=== PATIENT | male | born 1995 | race Caucasian/White ===

== ENCOUNTER 2019-01-02 22:29 | Emergency (ER) | payer SELFPAY ==
[2019-01-02 23:30] LABS: Absolute Lymphocytes (CBC) 2.4 K/uL (0.7-4.9); Basophils % 0.7 % (0-1.3); Hematocrit 44.5 % (39.6-49.0); Lymphocytes % 22.1 % (15.3-44.8); MPV 8.9 fL (7.6-11.3); RBC Red Blood Cell Count 5.47 M/uL (4.33-5.43)
[2019-01-02] MEDS ORDERED: NA CHLORIDE 0.9% 1,000 ML ONE (23:38)
[2019-01-02 23:44] LABS: CKMB Creatine Kinase MB 5.1 ng/mL (0.3-3.6); Potassium 3.9 mmol/L (3.5-5.1)
[2019-01-03 00:13] LABS: Urine Blood NEGATIVE (NEG); Urine Glucose NEGATIVE (NEG); Urine Protein NEGATIVE (NEG); Urine Specific Gravity 1.025 (1.005-1.030); Urine pH 6.5 (5.0-7.0)
[2019-01-03] MEDS ORDERED: NA CHLORIDE 0.9% 1,000 ML ONE (00:39)
--- NOTE | 2019-01-03 01:04 | ER ---
Nurse's Notes [facility] Name: Ty Govea Age: 23 yrs Sex: Male : 1995 Arrival Date: 01/02/2019 Time: 22:35 Bed 19 Private MD: Diagnosis: Muscle spasm-cramps Presentation: 01/02 23:00 Presenting complaint: Patient states: "body cramping and noticed dark urine since cc3 yesterday. No abdominal pain". Transition of care: patient was not received from another setting of care. Onset of symptoms was January 01, 2019. Risk Assessment: Do you want to hurt yourself or someone else? Patient reports no desire to harm self or others. Initial Sepsis Screen: Does the patient meet any 2 criteria? No. Patient's initial sepsis screen is negative. Does the patient have a suspected source of infection? Yes: Dysuria/Frequency/Urgency/UTI. Care prior to arrival: None. 23:00 Method Of Arrival: Ambulatory cc3 23:00 Acuity: BHAVANA 3 cc3 Triage Assessment: 23:00 General: Appears in no apparent distress. comfortable, Behavior is calm, cooperative, cc3 appropriate for age. Pain: Denies pain. EENT: No signs and/or symptoms were reported regarding the EENT system. Neuro: Level of Consciousness is awake, alert, obeys commands, Oriented to person, place, time, situation, Appropriate for age. Cardiovascular: Denies chest pain, Capillary refill < 3 seconds Patient's skin is warm and dry. Respiratory: Airway is patent Respiratory effort is even, unlabored, Respiratory pattern is regular, symmetrical. GI: Abdomen is round obese. : Reports dark urine. Derm: Skin is intact, is healthy with good turgor, Skin is pink, warm \\T\\ dry. normal. Musculoskeletal: Circulation, motion, and sensation intact. Range of motion: intact in all extremities. Historical: - Allergies: 23:00 No Known Allergies; cc3 - PSHx: 23:00 Tonsillectomy; left ankle surgery; cc3 - Immunization history:: Adult Immunizations up to date. - Social history:: Smoking status: Patient uses tobacco products, smokeless tobacco. - Ebola Screening: : No symptoms or risks identified at this time. Screenin:00 Abuse screen: Denies threats or abuse. Denies injuries from another. Nutritional cc3 screening: No deficits noted. Tuberculosis screening: No symptoms or risk factors identified. Fall Risk Ambulatory Aid- None/Bed Rest/Nurse Assist (0 pts). Gait- Normal/Bed Rest/Wheelchair (0 pts) Mental Status- Oriented to own ability (0 pts). Assessment: 23:00 General: see triage assessment. cc3 01/03 00:18 Reassessment: Patient appears in no apparent distress at this time. Patient and/or cc3 family updated on plan of care and expected duration. Pain level reassessed. Patient is alert, oriented x 3, equal unlabored respirations, skin warm/dry/pink. 01:30 Reassessment: Patient appears in no apparent distress at this time. Patient and/or cc3 family updated on plan of care and expected duration. Pain level reassessed. Patient is alert, oriented x 3, equal unlabored respirations, skin warm/dry/pink. IV fluid boluses completed. DIRECTOR OF VIDEO ANALYTICS Bossman discharged the patient home, no prescriptions given. IV cannula removed and patient left ER vitally stable and ambulatory with his friend. No valuables left in the patient's room. Patient denies pain at this time. Patient states feeling better. Patient states symptoms have improved. Vital Signs: 01/02 23:00 BP 142 / 76; Pulse 87; Resp 20 S; Temp 98.4(O); Pulse Ox 99% on R/A; Weight 149.69 kg cc3 (R); Height 6 ft. 7 in. (200.66 cm) (R); Pain 0/10; 01/03 00:20 BP 131 / 77; Pulse 85; Resp 18 S; Pulse Ox 98% on R/A; cc3 01:12 BP 135 / 72; Pulse 83; Resp 18 S; Pulse Ox 99% on R/A; cc3 01/02 23:00 Body Mass Index 37.18 (149.69 kg, 200.66 cm) 3 ED Course: 01/02 22:35 Patient arrived in ED. ag3 22:40 [facility] kb 22:40 Messi Rodríguez MD is Attending Physician. kb 23:00 Patient has correct armband on for positive identification. Bed in low position. Call cc3 light in reach. Side rails up X 1. Pulse ox on. NIBP on. 23:00 Arm band placed on right wrist. Patient notified of wait time. cc3 23:16 Tika Ramesh is Primary Nurse. cc3 23:28 Triage completed. cc3 23:34 Inserted saline lock: 20 gauge in right antecubital area, using aseptic technique. cm6 01/03 01:30 No provider procedures requiring assistance completed. IV discontinued, intact, cc3 bleeding controlled, No redness/swelling at site. Pressure dressing applied. Administered Medications: 01/02 23:30 Drug: NS 0.9% 1000 ml Route: IV; Rate: 1000 ml; Site: right antecubital; cc3 01/03 00:20 Follow up: Response: No adverse reaction; IV Status: Completed infusion; IV Intake: cc3 1000ml 00:30 Drug: NS 0.9% 1000 ml Route: IV; Rate: 1000 ml; Site: right antecubital; cc3 01:30 Follow up: Response: No adverse reaction; IV Status: Completed infusion; IV Intake: cc3 1000ml Intake: 00:20 IV: 1000ml; Total: 1000ml. cc3 01:30 IV: 1000ml; Total: 2000ml. cc3 Outcome: 00:53 Discharge ordered by . kb 01:30 Discharged to home ambulatory, with friend. cc3 01:30 Condition: stable 01:30 Discharge instructions given to patient, Instructed on discharge instructions, follow up and referral plans. Demonstrated understanding of instructions, follow-up care. 01:45 Patient left the ED. cc3 Signatures: Sanjuana Keita, TERADATA ARCHITECT-C TERADATA ARCHITECT-Ckb Tika Ramesh cc3 Mary Sandra Ada Almonte cm6 Corrections: (The following items were deleted from the chart) 01/02 23:34 23:32 Inserted saline lock: 20 gauge in right antecubital area, using aseptic cm6 technique. cm6 01/03 05:15 01/02 23:15 Inserted saline lock: 20 gauge in right antecubital area, using aseptic cc3 technique. Blood collected. inserted by diploma pharmacy techniciannidhi Caballero cc3
--- NOTE | 2019-01-03 01:05 | EDPHYS ---
Physician Documentation [facility] Name: Ty Govea Age: 23 yrs Sex: Male : 1995 Arrival Date: 01/02/2019 Time: 22:35 Bed 19 Private MD: ED Physician Messi Rodríguez HPI: 01/02 23:31 This 23 yrs old Male presents to ER via Ambulatory with complaints of BODY CRAMPING, kb DARK URINE. 23:31 Pt reports muscle cramps to entire body and dark urine that started today. 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 Onset: The symptoms/episode began/occurred today. Severity of symptoms: At their worst the symptoms were moderate in the emergency department the symptoms are unchanged. The patient has not experienced similar symptoms in the past. The patient has not recently seen a physician. Historical: - Allergies: 23:00 No Known Allergies; cc3 - PSHx: 23:00 Tonsillectomy; left ankle surgery; cc3 - Immunization history:: Adult Immunizations up to date. - Social history:: Smoking status: Patient uses tobacco products, smokeless tobacco. - Ebola Screening: : No symptoms or risks identified at this time. ROS: 23:30 Constitutional: Negative for fever, chills, and weight loss, ENT: Negative for injury, kb pain, and discharge, Neck: Negative for injury, pain, and swelling, Cardiovascular: Negative for chest pain, palpitations, and edema, Respiratory: Negative for shortness of breath, cough, wheezing, and pleuritic chest pain, Abdomen/GI: Negative for abdominal pain, nausea, vomiting, diarrhea, and constipation, Back: Negative for injury and pain, MS/Extremity: Negative for injury and deformity, Skin: Negative for injury, rash, and discoloration, Neuro: Negative for headache, weakness, numbness, tingling, and seizure. 23:30 : Positive for dark urine. Exam: 23:30 Constitutional: This is a well developed, well nourished patient who is awake, alert, kb and in no acute distress. Head/Face: Normocephalic, atraumatic. ENT: Nares patent. No nasal discharge, no septal abnormalities noted. Tympanic membranes are normal and external auditory canals are clear. Oropharynx with no redness, swelling, or masses, exudates, or evidence of obstruction, uvula midline. Mucous membranes moist. Neck: Trachea midline, no thyromegaly or masses palpated, and no cervical lymphadenopathy. Supple, full range of motion without nuchal rigidity, or vertebral point tenderness. No Meningismus. Chest/axilla: Normal chest wall appearance and motion. Nontender with no deformity. No lesions are appreciated. Cardiovascular: Regular rate and rhythm with a normal S1 and S2. No gallops, murmurs, or rubs. Normal PMI, no JVD. No pulse deficits. Respiratory: Lungs have equal breath sounds bilaterally, clear to auscultation and percussion. No rales, rhonchi or wheezes noted. No increased work of breathing, no retractions or nasal flaring. Abdomen/GI: Soft, non-tender, with normal bowel sounds. No distension or tympany. No guarding or rebound. No evidence of tenderness throughout. Skin: Warm, dry with normal turgor. Normal color with no rashes, no lesions, and no evidence of cellulitis. MS/ Extremity: Pulses equal, no cyanosis. Neurovascular intact. Full, normal range of motion. Neuro: Awake and alert, GCS 15, oriented to person, place, time, and situation. Cranial nerves II-XII grossly intact. Motor strength 5/5 in all extremities. Sensory grossly intact. Cerebellar exam normal. Normal gait. Vital Signs: 23:00 BP 142 / 76; Pulse 87; Resp 20 S; Temp 98.4(O); Pulse Ox 99% on R/A; Weight 149.69 kg cc3 (R); Height 6 ft. 7 in. (200.66 cm) (R); Pain 0/10; 01/03 00:20 BP 131 / 77; Pulse 85; Resp 18 S; Pulse Ox 98% on R/A; cc3 01:12 BP 135 / 72; Pulse 83; Resp 18 S; Pulse Ox 99% on R/A; cc3 01/02 23:00 Body Mass Index 37.18 (149.69 kg, 200.66 cm) cc3 MDM: 01/02 22:55 Patient medically screened. kb 23:31 Data reviewed: vital signs, nurses notes. Data interpreted: Pulse oximetry: on room air kb is 99 %. Interpretation: normal. 01/03 00:52 Counseling: I had a detailed discussion with the patient and/or guardian regarding: the kb historical points, exam findings, and any diagnostic results supporting the discharge/admit diagnosis, lab results, the need for outpatient follow up, a family practitioner, to return to the emergency department if symptoms worsen or persist or if there are any questions or concerns that arise at home. 01/02 23:06 Order name: CBC with Diff kb 01/02 23:06 Order name: Basic Metabolic Panel kb 01/02 23:06 Order name: CPK kb 01/02 23:06 Order name: Ckmb; Complete Time: 23:49 kb 01/02 23:07 Order name: CBC with Automated Diff; Complete Time: 23:31 EDMS 01/02 23:07 Order name: Basic Metabolic Panel; Complete Time: 23:49 EDMS 01/02 23:06 Order name: Urine Dipstick-Ancillary (obtain specimen); Complete Time: 00:00 kb 01/02 23:06 Order name: IV Start; Complete Time: 00:00 kb 01/02 23:07 Order name: Creatine Phosphokinase; Complete Time: 23:49 EDMS 01/03 00:03 Order name: Urine Dipstick--Ancillary (enter results) ag4 01/03 00:14 Order name: Urine Dipstick-Ancillary EDMS Administered Medications: 01/02 23:30 Drug: NS 0.9% 1000 ml Route: IV; Rate: 1000 ml; Site: right antecubital; cc3 01/03 00:20 Follow up: Response: No adverse reaction; IV Status: Completed infusion; IV Intake: cc3 1000ml 00:30 Drug: NS 0.9% 1000 ml Route: IV; Rate: 1000 ml; Site: right antecubital; cc3 01:30 Follow up: Response: No adverse reaction; IV Status: Completed infusion; IV Intake: cc3 1000ml Disposition: 02:27 Co-signature as Attending Physician, Messi Rodríguez MD. rn Disposition: 01/03/19 00:53 Discharged to Home. Impression: Muscle spasm - cramps. - Condition is Stable. - Discharge Instructions: Muscle Cramps and Spasms, Rhabdomyolysis. - Medication Reconciliation Form, Thank You Letter, Antibiotic Education, Prescription Opioid Use, Work release form form. - Follow up: Private Physician; When: 2 - 3 days; Reason: Recheck today's complaints, Continuance of care, Re-evaluation by your physician. Follow up: Emergency Department; When: As needed; Reason: Worsening of condition. Signatures: Dispatcher [employer] Sanjuana Rueda, SONA ALEXP-Messi Frey MD MD rn Cordel, Charlene cc3 Corrections: (The following items were deleted from the chart) 01:45 00:53 01/03/2019 00:53 Discharged to Home. Impression: Muscle spasm - cramps. Condition cc3 is Stable. Forms are Medication Reconciliation Form, Thank You Letter, Antibiotic Education, Prescription Opioid Use. Follow up: Private Physician; When: 2 - 3 days; Reason: Recheck today's complaints, Continuance of care, Re-evaluation by your physician. Follow up: Emergency Department; When: As needed; Reason: Worsening of condition. kb
== END 2019-01-03 01:45 | disposition home or self-care (01) ==
LOC: ER 22:29
DX: R25.2 Cramp and spasm (principal); Z72.0 Tobacco use
CPT/HCPCS: 36415; 80048; 81003; 82550; 82553; 85025; 96360; 96361; 99283; J7030